=== PATIENT | male | born 1975 ===

== ENCOUNTER 2018-01-28 05:10 | Day surgery (SDC) | payer OTHER ==
[2018-01-28] VITALS (13 sets, daily range): BP systolic 120–168; BP diastolic 61–86
[~2018-01-28] VITALS: Ht 160 cm; Wt 117.5 kg
[~2018-01-28 05:10] MED LIST: GABAPENTIN300 MG ORAL
[2018-01-28] MEDS ORDERED: ceFAZolin 1gm in D5W 55ml IVP ONE (06:00)
[2018-01-28] MEDS ORDERED: celeBREX 200mg Cap **SURGERY PATIENTS ONLY ORAL ONE (06:00)
[2018-01-28] MEDS ORDERED: oxyCONTIN 20mg tab ORAL ONE (06:00)
[2018-01-28] MEDS ORDERED: fentaNYL 100 mcg/2 mL IV ONE (06:31)
[2018-01-28] MEDS ORDERED: Propofol 200mg/20ml IV ONE (06:32)
[2018-01-28] MEDS ORDERED: Ketorolac 30mg Inj ONE ×3 (06:32→08:07)
[2018-01-28] MEDS ORDERED: Lidocaine 1% MPF 10mg/ml 5ml ONE (06:32)
[2018-01-28] MEDS ORDERED: Midazolam 2mg/2ml Inj ONE (06:32)
[2018-01-28] MEDS ORDERED: Morphine Sulfate PF 0 ML ONE (06:43)
[2018-01-28] MEDS ORDERED: Kenalog-40 1ml Vial ONE ×2 (06:44→08:07)
[2018-01-28] MEDS ORDERED: Bupivacaine 0.25% Inj 30ml INJ ONE (06:44)
[2018-01-28] MEDS ORDERED: EPINEPHrine 1mg/1ml Amp ONE (06:44)
[2018-01-28] MEDS ORDERED: Lidocaine 1% 10mg/ml/Epi 0.005mg/ml 30ml vial INJ ONE (06:44)
[2018-01-28] MEDS ORDERED: NS Irrig 4000ml IRRIG ONE (07:00)
[2018-01-28] MEDS ORDERED: LR 1000ml ONE (07:00)
[2018-01-28] MEDS ORDERED: LR 1000ml 1,000 ML IVLG SCH (07:14)
--- NOTE | 2018-01-28 07:14 | Anethesia Preoperative Eval ---
Anesthesia Pre-op PMH/ROS General Date of Evaluation: Jan 28, 2018 Time of Evaluation: 07:10 Anesthesiologist: Harry ASA Score: ASA 3 Mallampati Score Class I : Soft palate, uvula, fauces, pillars visible Class II: Soft palate, uvula, fauces visible Class III: Soft palate, base of uvula visible Class IV: Only hard plate visible Mallampati Classification: Class III Surgeon: Dl Diagnosis: L knee pain Surgical Procedure: L knee scope Anesthesia History: none Family History: no anesthesia problems Allergies: Coded Allergies: No Known Allergies (Unverified , 01/27/18) Medications: see eMAR Past Medical History Cardiovascular: Reports: HTN - borderline, not treated Pulmonary: Reports: YAQUELIN Gastrointestinal/Genitourinary: Denies: GERD, CRI, ESRD, other Neurologic/Psychiatric: Reports: other - chronic pain; Denies: dementia, CVA, depression/anxiety, TIA Endocrine: Denies: DM, hypothyroidism, steroids, other HEENT: Denies: cataract (L), cataract (R), glaucoma, AGDAAGUX (L), AGDAAGUX (R), other Hematology/Immune: Denies: anemia, DVT, bleeding disorder, other Musculoskeletal/Integumentary: Denies: OA, RA, DJD, DDD, edema, other Other: obesity - morbid obesity PMH Narrative: as above PSxH Narrative: L carpal tunnel, Skin graft. Anesthesia Pre-op Phys. Exam Physician Exam Last Vital Signs Date Time Temp Pulse Resp B/P (MAP) Pulse Ox O2 Delivery O2 Flow Rate FiO2 01/28/18 05:38 Room Air 01/28/18 05:34 97.0 76 18 168/86 (113) 96 97.0 Constitutional: NAD Neurologic: CN 2-12 intact Cardiovascular: RRR, no M/R/G Respiratory: CTA Gastrointestinal: other - obesity Airway Exam Mallampati Score: Class III MO: limited Neck: short ROM: limited Teeth: intact Dentures: no upper, no lower Anesthesia Pre-op A/P Labs see chart Studies Pre-op Studies: EKG - NSR Risk Assessment & Plan Assessment: ASA 3 Plan: GA with LMA Status Change Before Surgery: No Pre-Antibiotics Drug: Ancef 2 gr. Given Within 1 Hr of Incision: Yes Time Given: 07:35 Galen Mcdonald MD Jan 28, 2018 07:14
[2018-01-28] MEDS ORDERED: Meperidine 50mg/ml Inj(FOR RIGORS ONLY) IV PRN (07:15)
[2018-01-28] MEDS ORDERED: fentaNYL 100 mcg/2 mL IV PRN (07:15)
[2018-01-28] MEDS ORDERED: Ketorolac 30mg Inj IV PRN (07:15)
[2018-01-28] MEDS ORDERED: DiphenhydrAMINE 50mg/ml Inj IVP PRN (07:15)
--- NOTE | 2018-01-28 07:41 | Operative Note - PDOC ---
Operative Note Operative Note Pre-op Diagnosis: left knee interal derangement possible meniscus tear Procedure: see op report Post-op Diagnosis: same as pre-op plus Operative Findings: consistent w/pre-op dx studies Anesthesia: regional Specimen: none Complications: none Condition: stable Estimated Blood Loss: none Implant(s) used?: No Guilherme Lizama MD Jan 28, 2018 07:41
--- NOTE | 2018-01-28 07:41 | Pre-Procedure Note/Attestation ---
Pre-Procedure Note/Attestation Complete Prior to Procedure Planned Procedure: left Procedure Narrative: knee arthroscopy, possible menisectomy Indications for Procedure Pre-Operative Diagnosis: left knee interal derangement possible meniscus tear Attestation I attest that I discussed the nature of the procedure; its benefits; risks and complications; and alternatives (and the risks and benefits of such alternatives ), prior to the procedure, with the patient (or the patient's legal used equipment sales representative). I attest that, if there was a reasonable possibility of needing a blood transfusion, the patient (or the patient's legal used equipment sales representative) was given the [facility] standardized written summary, pursuant to the Jimmie Rona Blood Safety Act ([place] Health and Safety Code # 1645, as amended). I attest that I re-evaluated the patient just prior to the surgery and that there has been no change in the patient's H&P, except as documented below: Guilherme Lizama MD Jan 28, 2018 07:41
[2018-01-28] MEDS ORDERED: Norco 5mg/325mg tab ORAL PRN (07:45)
[2018-01-28] MEDS ORDERED: Tylenol #3 tab (300mg/30mg) ORAL PRN (07:45)
[2018-01-28] MEDS ORDERED: HYDROmorphone 1mg/ml Carpuject SUBQ PRN (07:45)
[2018-01-28] MEDS ORDERED: D5 1/2NS 1,000 ML IV SCH (07:45)
[2018-01-28] MEDS ORDERED: Morphine Sulfate PF 10 ML ONE (08:07)
[2018-01-28] MEDS ORDERED: Duramorph PF 10mg/10ml amp IV ONE (08:07)
--- NOTE | 2018-01-28 08:29 | Immediate Post-Op Evaluation ---
Immediate Post-Op Evalulation Immediate Post-Op Evalulation Procedure: L knee arthroscopy meniscectomy Date of Evaluation: Jan 28, 2018 Time of Evaluation: 08:28 IV Fluids: 800 Blood Products: none Estimated Blood Loss: min Urinary Output: none Blood Pressure Systolic: 125 Blood Pressure Diastolic: 63 Pulse Rate: 83 Respiratory Rate: 22 O2 Sat by Pulse Oximetry: 99 Temperature (Fahrenheit): 97.5 Pain Score (1-10): 1 Nausea: No Vomiting: No Complications none Patient Status: reacts, patent, none Hydration Status: adequate Galen Mcdonald MD Jan 28, 2018 08:29
--- NOTE | 2018-01-28 09:47 | 48 Hour Post Anesthesia Eval ---
Post Anesthesia Evaluation Procedure: L knee arthroscopy meniscectomy Date of Evaluation: Jan 28, 2018 Time of Evaluation: 09:46 Blood Pressure Systolic: 124 0: 76 Pulse Rate: 72 Respiratory Rate: 22 Temperature (Fahrenheit): 97.6 O2 Sat by Pulse Oximetry: 99 Airway: patent Nausea: No Vomiting: No Pain Intensity: 2 Hydration Status: adequate Cardiopulmonary Status: stable Mental Status/LOC: patient returned to baseline Follow-up Care/Observations: n/a Post-Anesthesia Complications: none Follow-up care needed: ready to discharge Galen Mcdonald MD Jan 28, 2018 09:47
--- NOTE | 2018-01-28 10:45 | Operative Note - Dictated ---
DATE OF OPERATION: 01/28/2018 NOTE: "POOR AUDIO QUALITY" PREOPERATIVE DIAGNOSIS: Left knee internal derangement secondary to hypertrophic fat pad syndrome versus meniscus tear. POSTOPERATIVE DIAGNOSIS: 1. Hypertrophic fat pad syndrome/synovitis. 2. Intrameniscual degenration medial meniscus PROCEDURES: 1. Left knee diagnostic arthroscopy. 2. Left knee arthroscopic medial, lateral, patellofemoral synovectomy and excision of fat pad. SURGEON: Guilherme Lizama M.D. ANESTHESIA: MAC. INDICATION FOR PROCEDURE: The patient is a pleasant 42-year-old gentleman, who has had significant injury to his left knee. He continues to have residual pain in the left knee. MRI showed some intrameniscal degeneration of the meniscus. He had continued symptoms. Therefore, he elected to undergo left knee diagnostic arthroscopy. The risks, limitations, expectations, and complications of the procedure were discussed in detail. All questions were addressed. DESCRIPTION OF PROCEDURE: After informed consent was obtained, the patient was brought to the operating room. We placed the patient under monitored anesthesia control. A tourniquet was applied to the left proximal thigh. Left leg was prepped and draped in sterile manner. Ancef was administered. Time-out was performed. Portal sites were injected with 0.25% Marcaine with epinephrine. Inferolateral stab incision was then made. Trocar was introduced into the knee joint. There was hypertrophic fat pad and synovial tissue in the retropatellar space area making visualization somewhat difficult. Medial compartment was entered. There was significant hypertrophic fat pad making visualization in the medial compartment difficult. Therefore, medial working portal was established. A complete synovectomy and excision of fat pad was performed. Once that was completed, the medial compartment was entered. The posterior horn of medial meniscus was probed to make sure that it was intact. There was no evidence of chondral damage. Intercondylar notch was entered. Excision of fat pad and synovial was extended into intercondylar notch and lateral compartment. ACL was probed and noted to be intact. Lateral compartment was entered, free from meniscal and chondral damage. Camera was placed in the medial working portal and excision of the fat pad and synovectomy was completed in the lateral compartment. Camera was repositioned in the patellofemoral compartment and a completion of excision of the fat pad and the synovectomy was completed. Once that was done, the instruments were removed. Portal sites were closed with 3-0 Monocryl sutures. Compression dressing was applied. The patient was awoken and taken to recovery room with stable vital signs. ESTIMATED BLOOD LOSS: None. COMPLICATIONS: None. SPECIMENS: None. IMPLANTS: None. Guilherme Lizama M.D. DR: Williams JOB#: [id number] CC: RUBENS
== END 2018-01-28 14:45 | disposition home or self-care (01) ==
LOC: SUR 05:10
DX: M79.4 Hypertrophy of (infrapatellar) fat pad (principal); M67.262 Synovial hypertrophy, not elsewhere classified, left lower leg
CPT/HCPCS: 29876; J0171; J0690; J1885; J2250; J2274; J2704; J3010; J3301; J3490; J7120; 94003; 94150